=== PATIENT | female | born 1995 | race Caucasian/White ===

== ENCOUNTER 2018-06-20 06:43 | Emergency (ER) | payer MEDICAID ==
[~2018-06-20] VITALS: Ht 157.5 cm; Wt 68.9 kg
[2018-06-20 06:53] VITALS: Ht 157.5 cm; Wt 68.9 kg
[2018-06-20 07:38] LABS: BASOPHIL % 1.4 % (0-2); PLATELET COUNT 315 x10^3mcL (130-400); RED CELL DISTRIBUTION WIDTH 12.8 % (11.5-14.5)
[2018-06-20 07:47] LABS: CALCIUM 8.8 mg/dL (8.5-10.1); CARBON DIOXIDE 25.2 mmol/L (21-32); CHLORIDE SERUM 104 mmol/L (98-107); CREATININE SERUM 0.7 mg/dL (0.6-1.0); GFR1 > 60 mL/min; GLUCOSE SERUM 114 mg/dL (74-106); POTASSIUM SERUM 3.5 mmol/L (3.5-5.1); SODIUM SERUM 139 mmol/L (136-145)
[2018-06-20 07:51] LABS: ALBUMIN 3.9 g/dL (3.4-5.0); ALKALINE PHOSPHATASE 86 U/L (46-116); ALT/SGPT 133 U/L (14-59); AST/SGOT 67 U/L (15-37); BILIRUBIN TOTAL 0.26 mg/dL (0.20-1.00); LIPASE 175 IU/L (73-393)
[2018-06-20 11:04] VITALS: BP 102/42
== END 2018-06-20 11:04 | disposition home or self-care (01) ==
LOC: ED 06:43
PROVIDERS: Emergency Medicine
DX: K29.70 Gastritis, unspecified, without bleeding (principal)
CPT/HCPCS: 36415; Q0092

== ENCOUNTER 2018-07-27 21:13 | Emergency (ER) | payer MEDICAID ==
[~2018-07-27] VITALS: Ht 157.5 cm; Wt 75.4 kg
[2018-07-27 22:01] VITALS: Ht 157.5 cm; Wt 75.4 kg
[2018-07-27 23:39] VITALS: BP 124/79
== END 2018-07-27 23:39 | disposition home or self-care (01) ==
LOC: ED 21:13
DX: R05 Cough (principal)
CPT/HCPCS: J1100; J1885